=== PATIENT | female | born 1980 | race Caucasian/White ===

== ENCOUNTER 2017-05-19 19:29 | Emergency (ER) | payer MEDICAID ==
[2017-05-19 19:30] VITALS: BMI 20.9
[2017-05-19 19:42] VITALS: PULSE 67
[2017-05-19] MEDS ORDERED: Aspirin 325 mg EC Tablets PO STA (19:51)
--- NOTE | 2017-05-19 19:51 | C.PDOC ---
History Of Present Illness 36 y/o female presents to ED with complaints of intermittent reproducible chest pain for 2 days. 12/11 Patient denies fever, chills, sob, cough, n/v/d or any other complaints at this time Time Seen by Provider: 05/19/17 19:50 Chief Complaint (Nursing): Chest Pain History Per: Patient History/Exam Limitations: no limitations Onset/Duration Of Symptoms: Days Current Symptoms Are (Timing): Still Present Severity: Mild Pain Scale Rating Of: 2 Quality: "Pain" Associated Symptoms: denies: Nausea Exacerbating Factors: None Past Medical History Reviewed: Historical Data, Nursing Documentation, Vital Signs Vital Signs: Last Vital Signs Temp 97.3 F L 05/19/17 19:37 Pulse 67 05/19/17 19:37 Resp 16 05/19/17 19:37 BP 108/50 L 05/19/17 19:37 Pulse Ox 96 05/19/17 20:33 - Medical History PMH: Anemia, Anxiety, Asthma, Back Problems ("3 HERNIATED DISCS"), Depression, Diabetes, Hyperthyroidism, Hypothyroidism, Chronic Kidney Disease - [facility] Procedures ANESTH INJECT-SPIN CANAL (01/09/15) INJECT STEROID (01/09/15) LUMBOSAC SPINE X-RAY NEC (01/09/15) SPINAL CANAL INJECT NEC (01/09/15) TETANUS TOXOID ADMINIST (05/21/13) Family History: States: Unknown Family Hx - Social History Hx Tobacco Use: No Hx Alcohol Use: No Hx Substance Use: No - Immunization History Hx Tetanus Toxoid Vaccination: Yes (05/21/13) Hx Influenza Vaccination: No Hx Pneumococcal Vaccination: No Review Of Systems Constitutional: Negative for: Fever, Chills Cardiovascular: Positive for: Chest Pain. Negative for: Palpitations Respiratory: Negative for: Cough, Shortness of Breath Gastrointestinal: Negative for: Nausea, Vomiting Skin: Negative for: Rash Physical Exam - Physical Exam Appears: Non-toxic, No Acute Distress Skin: Warm, Dry, No Rash Head: Normacephalic Eye(s): bilateral: Normal Inspection Oral Mucosa: Moist Chest: Other (Reproducible pain on palpation) Cardiovascular: Rhythm Regular Respiratory: No Rales, No Rhonchi, No Wheezing Gastrointestinal/Abdominal: Soft, No Tenderness, No Guarding, No Rebound Extremity: Capillary Refill (<2 seconds), No Deformity Neurological/Psych: Oriented x3 ED Course And Treatment - Laboratory Results Result Diagrams: 05/19/17 19:58 05/19/17 19:58 ECG: Interpreted By Me, Viewed By Me ECG Rhythm: Sinus Rhythm (59), Nonspecific Changes O2 Sat by Pulse Oximetry: 96 (RA) Pulse Ox Interpretation: Normal Medical Decision Making Medical Decision Making: I considered the following diagnoses: acute coronary syndrome, pulmonary embolism, lower respiratory infection, aortic dissection/aneurysm, pneumothorax , pericarditis, esophagitis/GERD, zoster and esophageal rupture but found them to be unlikely based on the history, physical exam, and diagnostics. My conclusions regarding the unlikely diagnoses were based on: the absence of significant EKG abnormalities, the lack of suggestive x-ray findings, the absence of significant abnormalities on cardiac monitoring, the absence of asymmetric pulses. Pt is chest pain free and wants to go home Upon provider reevaluation patient is feeling better, is medically stable, and requires no further treatment in the ED at this time. Patient will be discharged home with Rx for naprosyn . Counseling was provided and all questions were answered regarding diagnosis and need for follow up with the referred clinic. There is agreement to discharge plan. Return if symptoms persist or worsen. Disposition Counseled Patient/Family Regarding: Studies Performed, Diagnosis, Need For Followup, Rx Given - Disposition Referrals: [facility] [Outside] [facility] [Outside] Disposition: HOME/ ROUTINE Disposition Time: 19:51 Condition: FAIR Additional Instructions: Please return if symptoms recur Prescriptions: Naproxen [Naprosyn] 1 tab PO BID PRN #25 tab PRN Reason: Pain Instructions: Costochondritis (ED) Forms: [facility] (Irish) - Clinical Impression Clinical Impression: Costochondral chest pain, Atypical chest pain - Scribe Statement The provider has reviewed the documentation as recorded by the Aneta Cooley All medical record entries made by the Aneta were at my direction and personally dictated by me. I have reviewed the chart and agree that the record accurately reflects my personal performance of the history, physical exam, medical decision making, and the department course for this patient. I have also personally directed, reviewed, and agree with the discharge instructions and disposition.
[2017-05-19 20:03] LABS: BASO # 0.1 K/uL (0.0-0.2); BASO % 1.3 % (0.0-2.0); EOS # 0.6 K/uL (0.0-0.7); EOS % 9.2 % (0.0-4.0); HEMATOCRIT 37.4 % (34.0-47.0); LYMPH # 3.1 K/uL (1.0-4.3); LYMPH % 50.5 % (20.0-40.0); MEAN CORPUSCULAR HEMOGLOBIN 28.8 pg (27.0-31.0); MEAN CORPUSCULAR HGB CONC 33.9 g/dL (33.0-37.0); MONO # 0.6 K/uL (0.0-0.8); MONO % 10.5 % (0.0-10.0); NRBC % 0.1 % (0.0-2.0); RED CELL DISTRIBUTION WIDTH 13.2 % (11.5-14.5); WHITE BLOOD COUNT 6.1 K/uL (4.8-10.8)
[2017-05-19 20:07] LABS: MEAN CELL VOLUME 85.2 fL (81.0-99.0)
[2017-05-19 20:13] LABS: CHLORIDE 104 mmol/L (98-107); POTASSIUM 3.7 mmol/L (3.6-5.2); SODIUM 140 mmol/L (132-148)
[2017-05-19 20:15] LABS: BILIRUBIN,TOTAL 0.4 mg/dL (0.2-1.3); CARBON DIOXIDE 24 mmol/L (22-30); GFR AFRICAN-AMERICAN > 60
[2017-05-19 20:16] LABS: ALB/GLOB RATIO 1.1 (1.0-2.1); ALKALINE PHOSPHATASE 61 U/L (38-126); ALT/SGPT 36 U/L (9-52); AST/SGOT 42 U/L (14-36); BLOOD UREA NITROGEN 11 mg/dL (7-17); CALCIUM 9.4 mg/dl (8.6-10.4); GLUCOSE,RANDOM 100 mg/dL (65-105); TOTAL PROTEIN 6.6 g/dL (6.3-8.3)
[2017-05-19 20:53] LABS: RBC URINE 1 /hpf (0-3); URINE BILIRUBIN NEGATIVE (NEGATIVE); URINE BLOOD NEGATIVE (NEGATIVE); URINE COLOR Yellow (YELLOW); URINE GLUCOSE (UA) NORMAL (Normal); URINE KETONE NEGATIVE (NEGATIVE); URINE LEUKOCYTE ESTERASE NEG Leu/uL (Negative); URINE PROTEIN NEGATIVE (NEGATIVE); URINE UROBILINOGEN NORMAL mg/dL (0.2-1.0); WBC URINE 4 /hpf (0-5)
[2017-05-19 22:40] VITALS: BP 103/70; RESP 18; TEMP 97.8; O2SAT 99
--- NOTE | 2017-05-22 18:05 | CARD ---
APPROVED REPORT EKG Measurement Heart [id number] <Conclusion> Sinus bradycardia Abnormal QRS-T angle, consider primary T wave abnormality Abnormal ECG
== END 2017-05-19 22:48 | disposition home or self-care (01) ==
LOC: C.ER 19:29
DX: R07.89 Other chest pain (principal)
CPT/HCPCS: 80053; 80324; 80345; 80346; 80349; 80353; 80358; 80361; 81001; 83992; 84484; 84703; 85025; 85610; 85730; 96374; 99284; J1885

== ENCOUNTER 2017-05-24 12:56 | Emergency (ER) | payer MEDICAID ==
[2017-05-24 13:15] VITALS: BMI 23.9
[2017-05-24] MEDS ORDERED: SODIUM CHLORIDE 0.9% IV STA (13:25)
[2017-05-24] MEDS ORDERED: LIDOCAINE IV STA (13:25)
[2017-05-24] MEDS ORDERED: Sodium Chloride 0.9% 1,000 ML IV STA (13:25)
--- NOTE | 2017-05-24 13:26 | C.PDOC ---
History Of Present Illness 36 y/o female presents to ED with new onset constant left pelvic pain radiating to front of left thigh for 3 days. Patient reports pain is worse with movement and states last taken Motrin at 0900. Patient denies Hx of kidney stone , chronic back pain, n/v/d, back pain, urinary symptoms or any other complaints at this time. NEW ONSET L PELVIC PAIN X 3 DAYS. CONSTANT RADIATION FRONT OF L THIGH. WORSE W MOVEMENT. NO TRAUMA. DENIES PRIOR HO KIDNEY STONES, CHRONIC BACK PAIN. NO OTHER ASSOC SX. LAST MOTRIN @ 0900 EXAM MOD DIST NONTOXIC ABD NEG NO CVAT BACK LIMITED ROM NEURO INTACT Time Seen by Provider: 05/24/17 13:16 Chief Complaint (Nursing): Lower Extremity Problem/Injury History Per: Patient History/Exam Limitations: no limitations Onset/Duration Of Symptoms: Days, Waxing/Waning Past Medical History Reviewed: Historical Data, Nursing Documentation, Vital Signs Vital Signs: Last Vital Signs Temp 97.9 F 05/24/17 13:01 Pulse 70 05/24/17 13:01 Resp 20 05/24/17 13:01 BP 107/67 05/24/17 13:01 Pulse Ox 99 05/24/17 14:05 - Medical History PMH: Anemia, Anxiety, Asthma, Back Problems ("3 HERNIATED DISCS"), Depression, Diabetes, Hyperthyroidism, Hypothyroidism, Chronic Kidney Disease - [facility] Procedures ANESTH INJECT-SPIN CANAL (01/09/15) INJECT STEROID (01/09/15) LUMBOSAC SPINE X-RAY NEC (01/09/15) SPINAL CANAL INJECT NEC (01/09/15) TETANUS TOXOID ADMINIST (05/21/13) Family History: States: No Known Family Hx - Social History Hx Tobacco Use: No Hx Alcohol Use: No Hx Substance Use: No - Immunization History Hx Tetanus Toxoid Vaccination: Yes (05/21/13) Hx Influenza Vaccination: No Hx Pneumococcal Vaccination: No Review Of Systems Except As Marked, All Systems Reviewed And Found Negative. Constitutional: Negative for: Fever, Chills Gastrointestinal: Negative for: Nausea, Vomiting, Diarrhea Genitourinary: Positive for: Pelvic Pain. Negative for: Dysuria, Frequency, Incontinence, Vaginal Bleeding Musculoskeletal: Negative for: Back Pain Skin: Negative for: Rash Physical Exam - Physical Exam Appears: Non-toxic, Other (Moderate distress) Skin: Normal Color, Warm, Dry, No Rash Eye(s): bilateral: Normal Inspection Oral Mucosa: Moist Neck: Supple Gastrointestinal/Abdominal: Soft, No Tenderness, No Guarding, No Rebound Back: No CVA Tenderness, Decreased ROM (secondary to pain) Neurological/Psych: Oriented x3, Normal Speech, Normal Motor, Normal Sensation ED Course And Treatment - Laboratory Results Urine POC: Negative O2 Sat by Pulse Oximetry: 99 (RA) Pulse Ox Interpretation: Normal Reevaluation Time: 17:01 Reassessment Condition: Improved Disposition Counseled Patient/Family Regarding: Studies Performed, Diagnosis, Need For Followup, Rx Given - Disposition Referrals: Clinic,Med Surg [Primary Care Provider] - Disposition: HOME/ ROUTINE Disposition Time: 17:01 Condition: IMPROVED Prescriptions: Ibuprofen [Motrin] 600 mg PO Q6 #30 tab Lidocaine 5% [Lidoderm] 1 ea TD PRN PRN #10 patch PRN Reason: Pain, Moderate (4-7) Tramadol HCl [Ultram] 50 mg PO QID #20 tab Instructions: Sciatica (ED) Forms: [employer] (Armenian), Work Excuse - Clinical Impression Clinical Impression: Groin pain, Sciatic leg pain - 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 - Scribe Statement The provider has reviewed the documentation as recorded by the Moibjimbo Cooley All medical record entries made by the Aneta were at my direction and personally dictated by me. I have reviewed the chart and agree that the record accurately reflects my personal performance of the history, physical exam, medical decision making, and the department course for this patient. I have also personally directed, reviewed, and agree with the discharge instructions and disposition.
[2017-05-24 14:01] LABS: RBC URINE 1 /hpf (0-3); URINE BACTERIA RARE (<OCC); URINE BILIRUBIN NEGATIVE (NEGATIVE); URINE BLOOD NEGATIVE (NEGATIVE); URINE COLOR Yellow (YELLOW); URINE GLUCOSE (UA) NORMAL (Normal); URINE KETONE NEGATIVE (NEGATIVE); URINE LEUKOCYTE ESTERASE 1+ Leu/uL (Negative); URINE PROTEIN NEGATIVE (NEGATIVE); URINE UROBILINOGEN NORMAL mg/dL (0.2-1.0); WBC URINE 25 /hpf (0-5)
--- NOTE | 2017-05-24 16:44 | CT ---
PROCEDURE: CT scan abdomen and pelvis dated 05/24/2017 HISTORY: Left groin pain; rule out renal stone COMPARISON: No prior study available comparison TECHNIQUE: Contiguous axial images of the abdomen pelvis performed without oral or intravenous contrast material. Additional 2 dimensional sagittal and coronal reformats generated. Radiation dose: Total exam DLP = 271.21 mGy-cm. This CT exam was performed using one or more of the following dose reduction techniques: Automated exposure control, adjustment of the mA and/or kV according to patient size, and/or use of iterative reconstruction technique. FINDINGS: LOWER THORAX: Minimal passive atelectasis both posterior lower lung cortes. Lung bases otherwise clear. No infiltrate effusion or basilar pneumothorax. There is small hiatal hernia with slight wall thickening of the distal esophagus that likely due to protrusion of gastric mucosa. Esophagitis not excluded. LIVER: The liver is borderline/mildly enlarged measuring approximately 18.3 cm dimension. No obvious hepatic mass collection or calcification. GALLBLADDER AND BILE DUCTS: Gallbladder is physiologically distended. . There is a tiny intraluminal gallbladder calculus in the region the gallbladder neck appear clinical correlation recommended. Consider followup gallbladder ultrasound further evaluation. PANCREAS: Visualized unenhanced pancreas appears grossly unremarkable SPLEEN: The spleen exhibits normal attenuation pattern without mass collection or calcification. ADRENALS: There are no adrenal lesions. KIDNEYS AND URETERS: Kidneys demonstrate symmetric size. No definitive evidence of nephrolithiasis. . There is very tiny approximately 1.7 mm calcific density in the region of the left UVJ. While this could be extrinsic to the urinary bladder clinical correlation with urinalysis is suggested to assess for any hematuria. BLADDER: Urinary bladder is incompletely distended which may account for slight thick-walled appearance. Rule out cystitis. REPRODUCTIVE: Apparent hysterectomy with scarring seen along lower mid anterior abdominal wall. APPENDIX: Normal-appearing retrocecal appendix best seen on coronal axial image number [id number]. No periappendiceal inflammatory changes. BOWEL: Evaluation of the bowel is limited due to the lack of oral contrast. Stomach is incompletely distended which may account for slight thick-walled appearance. Gastritis not excluded. Visualized loops of small bowel exhibit normal contour and caliber. No evidence of acute mechanical small bowel obstruction. . Questionable few scattered colonic diverticula along the sigmoid colon. No evidence of acute diverticulitis Distal descending and sigmoid colon also what appears represent some mild submucosal fat deposition . Rule out the sequela of chronic inflammation. PERITONEUM: Unremarkable. No fluid collection. No free air. Small fat containing umbilical hernia. LYMPH NODES: Unremarkable. No significant bulky/enlarged lymph nodes. VASCULATURE: No evidence of abdominal aortic aneurysm BONES: Minor degenerative changes seen at the L4-L5 and L5-S1 levels. Minor degenerative spondylosis of the lower thoracic spine as well. No acute compression fractures nor retropulsed fragments. No evidence of suspicious lytic or blastic lesions. OTHER FINDINGS: None. IMPRESSION: There is a very tiny calcification measuring 1.7 mm in the region of the left UVJ however no evidence of left-sided hydronephrosis. This may be extrinsic to the urinary bladder could represent calcified pelvic phleboliths however the correlation with urinalysis recommended. Mild wall thickening of the urinary bladder likely due to incomplete distention however cystitis not excluded. Multiple additional small calcifications seen scattered throughout the pelvis consistent calcified pelvic phleboliths. Apparent status post hysterectomy. Small hiatal hernia. There appears to be mild submucosal fat deposition within the distal descending and sigmoid colon; rule out sequela of chronic inflammation. Questionable few colonic diverticula along the sigmoid colon also felt be present however no radiographic evidence of diverticulitis. Small fat containing umbilical hernia. The findings discussed with Dr. Root at approximately 4:42 p.m. with written down and read back verification.
[2017-05-24 17:15] VITALS: BP 126/76; PULSE 72; RESP 16; TEMP 97.5; O2SAT 100
== END 2017-05-24 17:15 | disposition home or self-care (01) ==
LOC: C.ER 12:56 → SUPCPDRO 12:56 → C.ER 17:15
DX: M54.32 Sciatica, left side (principal)
CPT/HCPCS: 74176; 81001; 96360; 99285; J2001; J7040

== ENCOUNTER 2017-07-06 22:01 | Emergency (ER) | payer MEDICAID ==
[2017-07-06 22:01] VITALS: BMI 23.9
[2017-07-06 22:29] VITALS: BP 102/71; PULSE 78; TEMP 97.9; O2SAT 100
--- NOTE | 2017-07-07 00:57 | C.PDOC ---
History Of Present Illness 36 year old female with a history of known herniated discs presents to the ED with complaints of right sided Sciatica pain that radiates to right back and buttock. Patient also complaints of two "insect bites" to right thigh. She denies weakness numbness, dysuria, incontinence, fever, or other complaints. Time Seen by Provider: 07/06/17 23:01 Chief Complaint (Nursing): Abnormal Skin Integrity History Per: Patient History/Exam Limitations: no limitations Onset/Duration Of Symptoms: Hrs (insect bites), Persistent (right sided sciatica pain ) Current Symptoms Are (Timing): Still Present Quality Of Symptoms: Painful. denies: Itching, Swollen, Draining Recent travel outside of the [place]: No Past Medical History Reviewed: Historical Data, Nursing Documentation, Vital Signs Vital Signs: Last Vital Signs Temp 97.9 F 07/06/17 22:26 Pulse 78 07/06/17 22:26 Resp 20 07/07/17 01:03 BP 102/71 07/06/17 22:26 Pulse Ox 100 07/07/17 01:59 - Medical History PMH: Anemia, Anxiety, Asthma, Back Problems ("3 HERNIATED DISCS"), Depression, Diabetes, Hyperthyroidism, Hypothyroidism, Chronic Kidney Disease - [facility] Procedures ANESTH INJECT-SPIN CANAL (01/09/15) INJECT STEROID (01/09/15) LUMBOSAC SPINE X-RAY NEC (01/09/15) SPINAL CANAL INJECT NEC (01/09/15) TETANUS TOXOID ADMINIST (05/21/13) Family History: States: Unknown Family Hx - Social History Hx Tobacco Use: No Hx Alcohol Use: No Hx Substance Use: No - Immunization History Hx Tetanus Toxoid Vaccination: Yes (05/21/13) Hx Influenza Vaccination: No Hx Pneumococcal Vaccination: No Review Of Systems Constitutional: Negative for: Fever, Chills Gastrointestinal: Negative for: Nausea, Vomiting Genitourinary: Negative for: Dysuria, Incontinence Musculoskeletal: Positive for: Back Pain (right sided sciatica pain radiating to right back and right buttock ) Skin: Positive for: Other (insect bites ) Neurological: Negative for: Weakness, Numbness Physical Exam - Physical Exam Appears: Non-toxic, No Acute Distress Skin: Warm, Dry, Other (two welts consistent with an insect bite to right thigh , no open sores. ) Head: Atraumatic, Normacephalic Eye(s): bilateral: Normal Inspection, PERRL, EOMI Oral Mucosa: Moist Neck: Normal ROM, No Midline Cervical Tenderness, No Paracervical Tenderness, Supple Chest: Symmetrical, No Deformity Cardiovascular: Rhythm Regular, No Murmur Respiratory: Normal Breath Sounds, No Rales, No Rhonchi, No Wheezing Back: Paraspinal Tenderness (right paralumbar tenderness ), Straight Leg Raising Extremity: Normal ROM, No Tenderness, No Pedal Edema, No Calf Tenderness, No Deformity, No Swelling ED Course And Treatment O2 Sat by Pulse Oximetry: 100 (RA) - Other Rad LS X-Ray X-Ray: Interpreted by Me, Viewed By Me Interpretation: Negative. Progress Note: Patient was given Benadryl, Toradol, and Valium. LS X-Ray was ordered. On re-evaluation patient feels better and is able to be d/c home with PMD follow up. Disposition - Disposition Disposition: HOME/ ROUTINE Disposition Time: 00:55 Condition: STABLE Additional Instructions: Follow up with PMD within 1-2 days. Return to ED if feel worse. Do not drive or operate heavy machinery, your medications may cause dizziness. 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 - Scribe Statement The provider has reviewed the documentation as recorded by the Scribe Merced Buckley All medical record entries made by the Scribe were at my direction and personally dictated by me. I have reviewed the chart and agree that the record accurately reflects my personal performance of the history, physical exam, medical decision making, and the department course for this patient. I have also personally directed, reviewed, and agree with the discharge instructions and disposition.
[2017-07-07 01:03] VITALS: RESP 20
--- NOTE | 2017-07-07 08:16 | RAD ---
PROCEDURE: Radiographs of the Lumbar Spine. HISTORY: left sciatica COMPARISON: Abdomen pelvis CT examination 05/24/2017. FINDINGS: BONES: Normal alignment. No listhesis. No fracture. DISC SPACES: Limited disc height loss at L4-5 and L5-S1 is appreciated which appear stable and again reflects limited degenerative disease. OTHER FINDINGS: None. IMPRESSION: Mild, stable inferior lumbar degenerative disc disease. No interval fracture or spondylolisthesis.
== END 2017-07-07 01:03 | disposition home or self-care (01) ==
LOC: C.ER 22:01
DX: M54.31 Sciatica, right side (principal); S70.361A Insect bite (nonvenomous), right thigh, initial encounter; W57.XXXA Bitten or stung by nonvenomous insect and other nonvenomous arthropods, initial encounter
CPT/HCPCS: 72100; 96372; 99283; J1885

== ENCOUNTER 2017-07-08 20:24 | Emergency (ER) | payer MEDICAID ==
[2017-07-08 20:24] VITALS: BMI 23.9
[2017-07-08 20:34] VITALS: BP 108/80; PULSE 86; RESP 18; TEMP 97.9; O2SAT 98
--- NOTE | 2017-07-08 21:43 | C.PDOC ---
History Of Present Illness 36 year old female with a Hx of sciatica presents to the ER with a complaint of left lower back pain radiating to the left buttock and left inguinal area that began today. Denies weakness, numbness, abdominal pain, urinary symptoms, or incontinence. Time Seen by Provider: 07/08/17 20:35 Chief Complaint (Nursing): Back Pain History Per: Patient History/Exam Limitations: no limitations Onset/Duration Of Symptoms: Hrs Current Symptoms Are (Timing): Still Present Quality Of Discomfort: Unable To Describe Previous Symptoms: Other (Sciatica) Associated Symptoms: None Exacerbating Factor(s): Nothing Recent travel outside of the [place]: No Past Medical History Reviewed: Historical Data, Nursing Documentation, Vital Signs Vital Signs: Last Vital Signs Temp 97.9 F 07/08/17 20:31 Pulse 86 07/08/17 20:31 Resp 18 07/08/17 20:31 BP 108/80 07/08/17 20:31 Pulse Ox 98 07/08/17 21:44 - Medical History PMH: Anemia, Anxiety, Asthma, Back Problems ("3 HERNIATED DISCS"), Depression, Diabetes, Hyperthyroidism, Hypothyroidism, Chronic Kidney Disease Surgical History: No Surg Hx - [facility] Procedures ANESTH INJECT-SPIN CANAL (01/09/15) INJECT STEROID (01/09/15) LUMBOSAC SPINE X-RAY NEC (01/09/15) SPINAL CANAL INJECT NEC (01/09/15) TETANUS TOXOID ADMINIST (05/21/13) Family History: States: Unknown Family Hx - Social History Hx Tobacco Use: No Hx Alcohol Use: No Hx Substance Use: No - Immunization History Hx Tetanus Toxoid Vaccination: Yes (05/21/13) Hx Influenza Vaccination: No Hx Pneumococcal Vaccination: No Review Of Systems Gastrointestinal: Negative for: Abdominal Pain Genitourinary: Negative for: Dysuria, Incontinence, Hematuria Musculoskeletal: Positive for: Back Pain, Leg Pain Neurological: Negative for: Weakness, Numbness Physical Exam - Physical Exam Appears: Non-toxic, No Acute Distress Skin: Normal Color, Warm, Dry Head: Atraumatic, Normacephalic Oral Mucosa: Moist Gastrointestinal/Abdominal: Soft, No Tenderness Back: Normal Inspection, No Vertebral Tenderness, No Paraspinal Tenderness Extremity: Normal ROM (x4), No Tenderness Neurological/Psych: Oriented x3, Normal Speech, Normal Cognition, Normal Motor, Normal Sensation Gait: Steady ED Course And Treatment O2 Sat by Pulse Oximetry: 98 (Room air) Pulse Ox Interpretation: Normal Progress Note: Toradol administered. Patient is resting comfortably, is no longer having back pain, no fever, no bony tenderness, no numbness, no weakness , or abdominal pain. Patient is ambulatory in the emergency department with no signs of discomfort. Patient was advised to follow up with PMD in 1-2 days. Disposition Counseled Patient/Family Regarding: Diagnosis, Need For Followup, Rx Given - Disposition Referrals: Non [facility] Provider, [Primary Care Provider] - Disposition: HOME/ ROUTINE Disposition Time: 21:41 Condition: STABLE Additional Instructions: Please follow up with PMD or in clinic Take meds as directed Return to ER if worse Prescriptions: Cyclobenzaprine [Cyclobenzaprine HCl] 10 mg PO HS #10 tab Naproxen [Naprosyn] 1 tab PO BID PRN #20 tab PRN Reason: Pain Instructions: Sciatica (ED) Forms: [employer] (Faroese) - Clinical Impression Clinical Impression: Sciatica - Scribe Statement The provider has reviewed the documentation as recorded by the Scribjimbo Shine All medical record entries made by the Scribe were at my direction and personally dictated by me. I have reviewed the chart and agree that the record accurately reflects my personal performance of the history, physical exam, medical decision making, and the department course for this patient. I have also personally directed, reviewed, and agree with the discharge instructions and disposition.
== END 2017-07-08 21:51 | disposition home or self-care (01) ==
LOC: C.ER 20:24 → SUPCPDRO 20:24 → C.ER 21:51
DX: M54.32 Sciatica, left side (principal)
CPT/HCPCS: 96372; 99283; J1885

== ENCOUNTER 2017-08-03 15:22 | Emergency (ER) | payer MEDICAID ==
[2017-08-03 15:29] VITALS: BMI 23.3
[2017-08-03 15:30] VITALS: BP 102/75; PULSE 75; RESP 18; TEMP 97.4; O2SAT 98
--- NOTE | 2017-08-03 15:49 | C.PDOC ---
Time Seen by Provider: 08/03/17 15:44 Chief Complaint (Nursing): Dental Pain Past Medical History Vital Signs: Last Vital Signs Temp 97.4 F L 08/03/17 15:29 Pulse 75 08/03/17 15:29 Resp 18 08/03/17 15:29 BP 102/75 08/03/17 15:29 Pulse Ox 98 08/03/17 15:49 - Medical History PMH: Anemia, Anxiety, Asthma, Back Problems ("3 HERNIATED DISCS"), Depression, Diabetes, Hyperthyroidism, Hypothyroidism, Chronic Kidney Disease - [facility] Procedures ANESTH INJECT-SPIN CANAL (01/09/15) INJECT STEROID (01/09/15) LUMBOSAC SPINE X-RAY NEC (01/09/15) SPINAL CANAL INJECT NEC (01/09/15) TETANUS TOXOID ADMINIST (05/21/13) Family History: States: Unknown Family Hx - Social History Hx Tobacco Use: No Hx Alcohol Use: No Hx Substance Use: No - Immunization History Hx Tetanus Toxoid Vaccination: Yes (05/21/13) Hx Influenza Vaccination: No Hx Pneumococcal Vaccination: No ED Course And Treatment O2 Sat by Pulse Oximetry: 98 Medical Decision Making Medical Decision Making: typical R lower facial post-op swelling after removed wisdom tooth yesterday ice pack for face continue same amox and ibuprofen as prescribed by dentist yesterday Disposition Doctor Will See Patient In The: Office Counseled Patient/Family Regarding: Studies Performed, Diagnosis - Disposition Disposition: HOME/ ROUTINE Disposition Time: 16:11 Condition: GOOD Forms: [employer] Connect (Citizen Of [place]) - Clinical Impression Clinical Impression: Facial swelling
== END 2017-08-03 16:21 | disposition home or self-care (01) ==
LOC: C.ER 15:22
DX: R22.0 Localized swelling, mass and lump, head (principal); E11.9 Type 2 diabetes mellitus without complications; N18.9 Chronic kidney disease, unspecified; E05.90 Thyrotoxicosis, unspecified without thyrotoxic crisis or storm

== ENCOUNTER 2017-09-30 12:27 | Emergency (ER) | payer MEDICAID ==
[2017-09-30 12:27] VITALS: BMI 23.3
--- NOTE | 2017-09-30 14:44 | C.PDOC ---
History Of Present Illness 36 year old female presents to the ED for evaluation of body aches, fever that stated this morning. Patient states she has not taken any medication at home for her symptoms and did not get the flu shot this year. Patient reports her son was recently with the flu. Patient denies nausea, vomit, diarrhea, abdominal pain, nasal congestion, recent travel. Time Seen by Provider: 09/30/17 12:50 Chief Complaint (Nursing): Flu-like Symptoms History Per: Patient History/Exam Limitations: no limitations Onset/Duration Of Symptoms: Hrs Current Symptoms Are (Timing): Still Present Location Of Pain: Diffuse Myalgias Sick Contacts (Context): Family Member(s) (son) Associated Symptoms: Fever, Myalgias Ear Symptoms: Bilateral: None Severity: None Recent travel outside of the [place]: No Additional History Per: Patient Past Medical History Reviewed: Historical Data, Nursing Documentation, Vital Signs Vital Signs: Last Vital Signs Temp 101.9 F H 09/30/17 14:45 Pulse 78 09/30/17 14:45 Resp 20 09/30/17 14:45 BP 121/78 09/30/17 14:45 Pulse Ox 99 09/30/17 14:47 - Medical History PMH: Anemia, Anxiety, Asthma, Back Problems ("3 HERNIATED DISCS"), Depression, Diabetes, Hyperthyroidism, Hypothyroidism, Chronic Kidney Disease Surgical History: No Surg Hx - [facility] Procedures ANESTH INJECT-SPIN CANAL (01/09/15) INJECT STEROID (01/09/15) LUMBOSAC SPINE X-RAY NEC (01/09/15) SPINAL CANAL INJECT NEC (01/09/15) TETANUS TOXOID ADMINIST (05/21/13) Family History: States: Unknown Family Hx - Social History Hx Tobacco Use: No Hx Alcohol Use: No Hx Substance Use: No - Immunization History Hx Tetanus Toxoid Vaccination: Yes (05/21/13) Hx Influenza Vaccination: No Hx Pneumococcal Vaccination: No Review Of Systems Constitutional: Positive for: Fever, Other (body aches). Negative for: Chills Cardiovascular: Negative for: Chest Pain, Palpitations Respiratory: Negative for: Cough, Shortness of Breath Gastrointestinal: Negative for: Nausea, Vomiting, Abdominal Pain Skin: Negative for: Rash Neurological: Negative for: Weakness, Numbness Physical Exam - Physical Exam Appears: Non-toxic, No Acute Distress, Other (warm to touch) Skin: Normal Color, Warm, Dry Head: Atraumatic, Normacephalic Eye(s): bilateral: Normal Inspection Ear(s): Bilateral: Normal Nose: No Discharge, No Deformity Oral Mucosa: Moist Throat: Normal, No Erythema, No Exudate Neck: Normal ROM, Supple Chest: Symmetrical Cardiovascular: Rhythm Regular, No Murmur Respiratory: Normal Breath Sounds, No Rales, No Rhonchi, No Wheezing Gastrointestinal/Abdominal: Soft, No Tenderness Extremity: Normal ROM, No Calf Tenderness, No Deformity, No Swelling Neurological/Psych: Oriented x3, Normal Speech, Normal Cognition Gait: Steady ED Course And Treatment O2 Sat by Pulse Oximetry: 99 (On RA) Pulse Ox Interpretation: Normal Medical Decision Making Medical Decision Making: Impression : generalized body aches, fever Plan: * Influenza A B test Disposition - Disposition Referrals: Estrella Bañuelos, [Non-Staff] - Disposition: HOME/ ROUTINE Disposition Time: 14:00 Condition: GOOD Additional Instructions: Thank you for letting us take care of you today. The emergency medical care you received today was directed at your acute symptoms. If you were prescribed any medication, please fill it and take as directed. It may take several days for your symptoms to resolve. Return to the Emergency Department if your symptoms worsen, do not improve, or if you have any other problems. Please contact your doctor or call one of the physicians/clinics you have been referred to that are listed on the Patient Visit Information form that is included in your discharge packet. Bring any paperwork you were given at discharge with you along with any medications you are taking to your follow up visit. Our treatment cannot replace ongoing medical care by a primary care provider (PCP) outside of the emergency department. Thank you for allowing the [facility] team to be part of your care today. Stay hydrated throughout the day. Follow up with your doctor in 2-3 days for outpatient management and further evaluation. Prescriptions: Ibuprofen [Motrin] 600 mg PO Q6 PRN #20 tab PRN Reason: Pain, Moderate (4-7) Oseltamivir Phosphate [Tamiflu] 75 mg PO BID #10 capsule Instructions: Viral Syndrome (ED) - Clinical Impression Clinical Impression: Influenza-like illness - Scribe Statement The provider has reviewed the documentation as recorded by the Scribe Bharath Dey All medical record entries made by the Scribe were at my direction and personally dictated by me. I have reviewed the chart and agree that the record accurately reflects my personal performance of the history, physical exam, medical decision making, and the department course for this patient. I have also personally directed, reviewed, and agree with the discharge instructions and disposition.
[2017-09-30 14:46] VITALS: BP 121/78; PULSE 78; RESP 20; TEMP 101.9
[2017-09-30 14:47] VITALS: O2SAT 99
== END 2017-09-30 14:46 | disposition home or self-care (01) ==
LOC: C.ER 12:27
DX: J11.1 Influenza due to unidentified influenza virus with other respiratory manifestations (principal); N18.9 Chronic kidney disease, unspecified; E11.9 Type 2 diabetes mellitus without complications

== ENCOUNTER 2017-11-18 22:27 | Emergency (ER) | payer MEDICAID ==
[2017-11-18 22:27] VITALS: BMI 23.3
[2017-11-18 23:23] VITALS: BP 111/70; PULSE 62; RESP 20; TEMP 98.1; O2SAT 100
--- NOTE | 2017-11-18 23:48 | C.PDOC ---
History Of Present Illness 36 yo female with PMH of 3 herniated discs lower back pain since yesterday. She did not try any medication. She use to see pain management but has not seen them in 1-2 years. Pain worse with movement. No new symptoms. Denies trauma, symptoms, urinary/bowel incontinence, abdominal pain, weakness, or change in sensation. Time Seen by Provider: 11/18/17 23:26 Chief Complaint (Nursing): Back Pain History Per: Patient History/Exam Limitations: no limitations Onset/Duration Of Symptoms: Days (yesterday) Current Symptoms Are (Timing): Still Present Associated Symptoms: denies: Incontinence, New Weakness, New Numbness Exacerbating Factor(s): Movement Past Medical History Vital Signs: Last Vital Signs Temp 98.1 F 11/18/17 23:20 Pulse 62 11/18/17 23:20 Resp 20 11/19/17 01:07 BP 111/70 11/18/17 23:20 Pulse Ox 100 11/19/17 00:59 - Medical History PMH: Anemia, Anxiety, Asthma, Back Problems ("3 HERNIATED DISCS"), Depression, Diabetes, Hyperthyroidism, Hypothyroidism, Chronic Kidney Disease - [facility] Procedures ANESTH INJECT-SPIN CANAL (01/09/15) INJECT STEROID (01/09/15) LUMBOSAC SPINE X-RAY NEC (01/09/15) SPINAL CANAL INJECT NEC (01/09/15) TETANUS TOXOID ADMINIST (05/21/13) Family History: States: Unknown Family Hx - Social History Hx Tobacco Use: No Hx Alcohol Use: No Hx Substance Use: No - Immunization History Hx Tetanus Toxoid Vaccination: Yes (05/21/13) Hx Influenza Vaccination: No Hx Pneumococcal Vaccination: No Review Of Systems Except As Marked, All Systems Reviewed And Found Negative. Musculoskeletal: Positive for: Back Pain Physical Exam - Physical Exam Appears: Well, Non-toxic, No Acute Distress Skin: Normal Color, Warm, Dry Head: Atraumatic, Normacephalic Eye(s): bilateral: Normal Inspection, PERRL, EOMI Nose: Normal Oral Mucosa: Moist Neck: Normal, Normal ROM, No Midline Cervical Tenderness, Supple Chest: Symmetrical Cardiovascular: Rhythm Regular Respiratory: Normal Breath Sounds Gastrointestinal/Abdominal: Normal Exam, Soft, No Tenderness Back: No CVA Tenderness, No Vertebral Tenderness, Paraspinal Tenderness (b/l paralumbar tenderness) Extremity: Normal ROM Neurological/Psych: Oriented x3, Normal Speech, Normal Motor, Normal Sensation Gait: Steady ED Course And Treatment O2 Sat by Pulse Oximetry: 100 Progress Note: Toradol and Flexeril ordered. On re-evaluation, pt is sleeping. Patient remains afebrile, with no bony tenderness, extremity numbness or weakness, or abdominal pain. Patient is ambulatory in the emergency department with no signs of discomfort. Patient was advised to follow up with physician/ clinic in 1-2 days. Disposition - Disposition Disposition: HOME/ ROUTINE Disposition Time: 00:58 Condition: STABLE Additional Instructions: Follow up with your primary medical doctor or clinic in 2-5 days for further evaluation. Take medications as prescribed. Return to the emergency department at any time if symptoms persist or worsen. Prescriptions: Cyclobenzaprine [Cyclobenzaprine HCl] 10 mg PO BID #14 tab Naproxen [Naprosyn] 1 tab PO BID PRN #20 tab PRN Reason: Pain Instructions: Low Back Pain (DC) Forms: [employer] (Czech) - Clinical Impression Clinical Impression: Lumbar back pain
[2017-11-19 00:39] LABS: HCG,QUALITATIVE URINE NEGATIVE (NEGATIVE)
[2017-11-19 00:44] LABS: SQUAMOUS EPITHIAL 6 /hpf (0-5); URINE BILIRUBIN NEGATIVE (NEGATIVE); URINE BLOOD NEGATIVE (NEGATIVE); URINE CLARITY Clear (Clear); URINE COLOR Yellow (YELLOW); URINE GLUCOSE (UA) NORMAL (Normal); URINE LEUKOCYTE ESTERASE TRACE Leu/uL (Negative); URINE NITRATE NEGATIVE (NEGATIVE); URINE PROTEIN NEGATIVE (NEGATIVE); URINE UROBILINOGEN NORMAL mg/dL (0.2-1.0)
== END 2017-11-19 01:06 | disposition home or self-care (01) ==
LOC: C.ER 22:27
DX: M54.5 Low back pain (principal)
CPT/HCPCS: 81001; 84703; 96372; 99283; J1885

== ENCOUNTER 2017-12-01 15:07 | Inpatient (IN) | payer MEDICAID ==
[2017-12-01 15:08] VITALS: BMI 23.3
--- NOTE | 2017-12-01 16:33 | C.PDOC ---
History Of Present Illness 36-year-old female, PMHx includes Hypothyroidism and Asthma, presents to the emergency department with complaints of left upper chest pain for the past three days. Patient was seen at a clinic, where an EKG was done and patient was instructed to follow up with cardiology. Patient notes the chest pain persisted , resulting in her coming to ED for evaluation prior to making appointment with a layout former. Patient took Motrin at home with minimal relief. Patient notes associated nausea and dizziness (lightheadedness). Patient denies any recent travel, leg swelling/pain, vomiting, fevers/chills, shortness of breath, chest pain. Of note patient states she has a FMHx of [place] in father (in his "30s") and "blood clot in neck" in mother. Time Seen by Provider: 12/01/17 15:50 Chief Complaint (Nursing): Chest Pain History Per: Patient History/Exam Limitations: no limitations Onset/Duration Of Symptoms: Days Current Symptoms Are (Timing): Still Present Past Medical History Reviewed: Historical Data, Nursing Documentation, Vital Signs Vital Signs: Last Vital Signs Temp 98.2 F 12/01/17 15:34 Pulse 94 H 12/01/17 15:34 Resp 18 12/01/17 15:34 BP 114/80 12/01/17 15:34 Pulse Ox 97 12/01/17 18:14 - Medical History PMH: Anemia, Anxiety, Asthma, Back Problems ("3 HERNIATED DISCS"), Depression, Diabetes, Hyperthyroidism, Hypothyroidism, Chronic Kidney Disease - [facility] Procedures ANESTH INJECT-SPIN CANAL (01/09/15) INJECT STEROID (01/09/15) LUMBOSAC SPINE X-RAY NEC (01/09/15) SPINAL CANAL INJECT NEC (01/09/15) TETANUS TOXOID ADMINIST (05/21/13) Family History: States: No Known Family Hx - Social History Hx Tobacco Use: No Hx Alcohol Use: No Hx Substance Use: No - Immunization History Hx Tetanus Toxoid Vaccination: Yes (05/21/13) Hx Influenza Vaccination: Yes Hx Pneumococcal Vaccination: No Review Of Systems Except As Marked, All Systems Reviewed And Found Negative. Constitutional: Negative for: Fever, Chills Cardiovascular: Positive for: Chest Pain Respiratory: Negative for: Shortness of Breath Gastrointestinal: Negative for: Nausea, Vomiting Musculoskeletal: Positive for: Arm Pain. Negative for: Back Pain Skin: Negative for: Rash Neurological: Negative for: Weakness, Numbness, Headache, Dizziness Physical Exam - Physical Exam Appears: Well, Non-toxic, No Acute Distress, Other (anxious appearing ) Skin: Normal Color, Warm, Dry, No Rash Eye(s): bilateral: Normal Inspection Oral Mucosa: Moist Neck: Normal, Normal ROM Cardiovascular: Rhythm Regular Respiratory: Normal Breath Sounds, No Accessory Muscle Use, No Rales, No Rhonchi , No Wheezing Extremity: Normal ROM, No Calf Tenderness, No Deformity, No Swelling Pulses: Left Dorsalis Pedis: Normal, Right Dorsalis Pedis: Normal Neurological/Psych: Oriented x3 ED Course And Treatment - Laboratory Results Result Diagrams: 12/01/17 16:33 12/01/17 16:33 ECG: Interpreted By Me, Viewed By Me (NSR 65 bpm, normal axis, no acute ST/T wave changes) ECG Interpretation: Normal O2 Sat by Pulse Oximetry: 97 (RA) Pulse Ox Interpretation: Normal - Radiology CXR: Interpreted by Me, Viewed By Me CXR Interpretation: Yes: No Acute Disease. No: Infiltrates Progress Note: Bloodwork, Chest X-Ray, EKG and UA/Upreg ordered and reviewed. Patient given IV morphine for pain. D-dimer elevated, CTQ chest ordered - however patient states she has shellfish allergy; changed to VQ scan. Disposition - Disposition Disposition Time: 19:05 Condition: STABLE Forms: [facility] (Cook Islander) - Clinical Impression Clinical Impression: Chest pain - Scribe Statement The provider has reviewed the documentation as recorded by the Scribe (Lamont Ruffin) All medical record entries made by the Scribe were at my direction and personally dictated by me. I have reviewed the chart and agree that the record accurately reflects my personal performance of the history, physical exam, medical decision making, and the department course for this patient. I have also personally directed, reviewed, and agree with the discharge instructions and disposition. Physician Patient Turnover Patient Signed Over To: Carl Deras Handoff Comments: pending VQ scan
[2017-12-01 16:40] LABS: BASO # 0.1 K/uL (0.0-0.2); BASO % 1.4 % (0.0-2.0); EOS # 0.6 K/uL (0.0-0.7); EOS % 7.5 % (0.0-4.0); HEMOGLOBIN 12.3 g/dL (11.0-16.0); LYMPH # 3.4 K/uL (1.0-4.3); LYMPH % 42.3 % (20.0-40.0); MEAN CELL VOLUME 87.5 fL (81.0-99.0); MEAN CORPUSCULAR HEMOGLOBIN 30.1 pg (27.0-31.0); MEAN CORPUSCULAR HGB CONC 34.4 g/dL (33.0-37.0); MEAN PLATELET VOLUME 9.2 fL (7.2-11.7); MONO # 0.8 K/uL (0.0-0.8); MONO % 9.6 % (0.0-10.0); NEUT # 3.1 K/uL (1.8-7.0); NEUT % 39.2 % (50.0-75.0); NRBC % 0.1 % (0.0-2.0); RBC 4.08 Mil/uL (3.80-5.20); RED CELL DISTRIBUTION WIDTH 13.7 % (11.5-14.5)
[2017-12-01 16:48] LABS: SQUAMOUS EPITHIAL 4 /hpf (0-5); URINE BILIRUBIN NEGATIVE (NEGATIVE); URINE BLOOD NEGATIVE (NEGATIVE); URINE CLARITY Clear (Clear); URINE COLOR Red (YELLOW); URINE GLUCOSE (UA) NORMAL (Normal); URINE LEUKOCYTE ESTERASE NEG Leu/uL (Negative); URINE NITRATE NEGATIVE (NEGATIVE); URINE PROTEIN NEGATIVE (NEGATIVE); URINE UROBILINOGEN NORMAL mg/dL (0.2-1.0)
[2017-12-01 16:49] LABS: HCG,QUALITATIVE URINE NEGATIVE (NEGATIVE)
[2017-12-01 16:55] LABS: ALB/GLOB RATIO 1.1 (1.0-2.1); ALBUMIN 3.8 g/dL (3.5-5.0); ALT/SGPT 22 U/L (9-52); AST/SGOT 37 U/L (14-36); BLOOD UREA NITROGEN 13 mg/dL (7-17); CALCIUM 9.4 mg/dl (8.6-10.4); GFR AFRICAN-AMERICAN > 60; GFR NON-AFRICAN AMERICAN > 60
--- NOTE | 2017-12-01 17:00 | RAD ---
HISTORY: CHEST PAIN COMPARISON: 05/12/2015 TECHNIQUE: Chest PA and lateral FINDINGS: LUNGS: No active pulmonary disease. PLEURA: No significant pleural effusion identified. No pneumothorax apparent. CARDIOVASCULAR: Normal. OSSEOUS STRUCTURES: No significant abnormalities. VISUALIZED UPPER ABDOMEN: Normal. OTHER FINDINGS: None. IMPRESSION: No active disease.
[2017-12-01 17:03] LABS: CK-MB 1.13 ng/mL (0.0-3.38)
[2017-12-01] MEDS ORDERED: DiphenhydrAMINE 50 mg/ml Inj IVP STA (22:57)
[2017-12-01] MEDS ORDERED: Enoxaparin 40 mg Syringe SC STA (23:46)
[2017-12-02] MEDS ORDERED: DiphenhydrAMINE 50 mg/ml Inj ONE (00:07)
[2017-12-02] MEDS ORDERED: Enoxaparin 60 mg Syringe ONE (00:09)
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
[2017-12-02 01:09] LABS: CK-MB 0.66 ng/mL (0.0-3.38)
[2017-12-02] MEDS ORDERED: Albuterol HFA 90 mcg/actuation (8 g) INH PRN (01:31)
[2017-12-02] MEDS ORDERED: Iodixanol 320 MG/ML 100 ML BOTTLE IV ONE (01:44)
--- NOTE | 2017-12-02 04:39 | CT ---
EXAM: CT Angiography Chest With Intravenous Contrast CLINICAL HISTORY: 36 years old, female; Pain; Chest pain; Additional info: Suspect pe; . Pt. Iv explore during shouting and pt. Just took 40cc contrast. TECHNIQUE: Axial computed tomographic angiography images of the chest with intravenous contrast using pulmonary embolism protocol. All CT scans at this facility use one or more dose reduction techniques, viz.: automated exposure control; ma/kV adjustment per patient size (including targeted exams where dose is matched to indication; i.e. head); or iterative reconstruction technique. MIP reconstructed images were created and reviewed. Coronal and sagittal reformatted images were created and reviewed. CONTRAST: 40 mL of visipaque administered intravenously. COMPARISON: CR - CHEST TWO VIEWS (PA/LAT) 2017-12-01 16:33 FINDINGS: Limitations: Motion artifact - mild. Suboptimal timing of bolus. Suboptimal contrast opacification. Pulmonary arteries: No definite filling defects within main, lobar, segmental branches. Suboptimal evaluation of subsegmental branches. Aorta: No aneurysm. No dissection. Lungs: Minimal dependent atelectasis. No consolidation. Few pulmonary nodules, up to 0.3 cm. Pleural space: Trace bilateral pleural effusions. No pneumothorax. Heart: No cardiomegaly. No significant pericardial effusion. Bones/joints: No acute fracture. Soft tissues: Unremarkable. Lymph nodes: No pathologically enlarged lymph nodes. IMPRESSION: 1. No definite pulmonary embolism. 2. Pulmonary nodules. For low-risk patients, no follow-up is necessary. For high-risk patients (smoking history or other known risk factors) an optional CT at 12 months could be performed. 3. Incidental/non-acute findings are described above.
[2017-12-02 06:25] LABS: BASO # 0.1 K/uL (0.0-0.2); BASO % 0.8 % (0.0-2.0); EOS # 0.1 K/uL (0.0-0.7); EOS % 0.9 % (0.0-4.0); HEMOGLOBIN 12.9 g/dL (11.0-16.0); LYMPH # 1.3 K/uL (1.0-4.3); LYMPH % 18.8 % (20.0-40.0); MEAN CELL VOLUME 86.8 fL (81.0-99.0); MEAN CORPUSCULAR HEMOGLOBIN 29.8 pg (27.0-31.0); MEAN CORPUSCULAR HGB CONC 34.4 g/dL (33.0-37.0); MEAN PLATELET VOLUME 9.4 fL (7.2-11.7); MONO # 0.1 K/uL (0.0-0.8); MONO % 1.5 % (0.0-10.0); NEUT # 5.4 K/uL (1.8-7.0); NRBC % 0.1 % (0.0-2.0); RBC 4.32 Mil/uL (3.80-5.20); RED CELL DISTRIBUTION WIDTH 13.8 % (11.5-14.5)
[2017-12-02 08:39] LABS: ALBUMIN 3.8 g/dL (3.5-5.0); BLOOD UREA NITROGEN 13 mg/dL (7-17); CALCIUM 9.3 mg/dl (8.6-10.4); GFR AFRICAN-AMERICAN > 60; GFR NON-AFRICAN AMERICAN > 60
[2017-12-02 08:40] LABS: ALB/GLOB RATIO 1.1 (1.0-2.1); ALT/SGPT 25 U/L (9-52); AST/SGOT 57 U/L (14-36)
[2017-12-02] MEDS ORDERED: Enoxaparin 40 mg Syringe SC SCH (10:00)
[2017-12-02] MEDS ORDERED: Levothyroxine 50 MCG TAB PO SCH (10:00)
--- NOTE | 2017-12-02 13:28 | VASCLAB ---
PROCEDURE: Lower Extremity Venous Duplex Exam. HISTORY: elevated d-dimer; LE pain PRIORS: None. TECHNIQUE: Bilateral common femoral, femoral, popliteal and posterior tibial, peroneal and great saphenous veins were evaluated. Flow was assessed with color Doppler, compressibility, assessment of phasic flow and augmentation response. Report prepared by Waylon Ferguson, FILI, RVT FINDINGS: RIGHT: 1. Common Femoral Vein: 1.1. Compressibility - Fully compressible: Thrombus - None : Flow - Phasic: Augmentation -Normal: Reflux - None. 2. Femoral Vein: 2.1. Compressibility - Fully compressible: Thrombus - None : Flow - Phasic: Augmentation -Normal: Reflux - None. 3. Popliteal Vein: 3.1. Compressibility - Fully compressible: Thrombus - None : Flow - Phasic: Augmentation -Normal: Reflux - None. 4. Posterior Tibial Vein: 4.1. Compressibility - Fully compressible: Thrombus - None: Flow - Phasic: Augmentation -Normal: Reflux - None. 5. Peroneal Vein: 5.1. Compressibility - Fully compressible: Thrombus - None: Flow - Phasic: Augmentation -Normal: Reflux - None. 6. Great Saphenous Vein: 6.1. Compressibility - Fully compressible: Thrombus - None: Flow - Phasic: Augmentation - Normal: Reflux - None. LEFT: 1. Common Femoral Vein: 1.1. Compressibility - Fully compressible: Thrombus - None: Flow - Phasic: Augmentation -Normal: Reflux - None. 2. Femoral Vein: 2.1. Compressibility - Fully compressible: Thrombus - None: Flow - Phasic: Augmentation -Normal: Reflux - None. 3. Popliteal Vein: 3.1. Compressibility - Fully compressible: Thrombus - None : Flow - Phasic: Augmentation -Normal: Reflux - None. 4. Posterior Tibial Vein: 4.1. Compressibility - Fully compressible: Thrombus - None: Flow - Phasic: Augmentation -Normal: Reflux - None. 5. Peroneal Vein: 5.1. Compressibility - Fully compressible: Thrombus - None: Flow - Phasic: Augmentation -Normal: Reflux - None. 6. Great Saphenous Vein: 6.1. Compressibility - Fully compressible: Thrombus - None: Flow - Phasic: Augmentation - Normal: Reflux - None. OTHER FINDINGS: Right: None significant. Left: None significant. IMPRESSION: Right: No evidence of deep or superficial vein thrombosis of the right lower extremity. Normal valve function noted of the right side. Left: No evidence of deep or superficial vein thrombosis of the left lower extremity. Normal valve function noted of the left side.
--- NOTE | 2017-12-02 16:52 | NM ---
COMPARISON: Chest radiographs 12/01/2017. Chest CT with contrast 12/02/2017. TECHNIQUE: 5.4 mCi Xe-133 Gas. 10.0 mCI technetium 99-m MAA administered intravenously. FINDINGS: VENTILATION COMPONENT: Normal. PERFUSION COMPONENT: One or two subsegmental defects are appreciated at the left lower lobe superior segment, in the LPO view only. IMPRESSION: Lowprobability ventilation perfusion scan for pulmonary embolism.
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
--- NOTE | 2017-12-02 18:50 | CARD ---
APPROVED REPORT EKG Measurement Heart [id number] <Conclusion> Sinus bradycardia with marked sinus arrhythmia Otherwise normal ECG
--- NOTE | 2017-12-02 18:55 | CARD ---
APPROVED REPORT EKG Measurement Heart [id number] <Conclusion> Normal sinus rhythm Normal ECG
[2017-12-03 00:40] VITALS: BP 102/63; PULSE 74; RESP 20; TEMP 98.9; O2SAT 98
[2017-12-03] MEDS ORDERED: Pneumococcal 23-Valent Vaccine IM ONE (10:00)
== END 2017-12-02 20:30 | disposition home or self-care (01) | DRG 543 ==
LOC: C.ER 15:07 → C.9E 22:57 → C.6T 12-02 03:13
PROVIDERS: ADMIT Internal Medicine; ATTEND Internal Medicine
DX: R07.89 Other chest pain (principal); I26.99 Other pulmonary embolism without acute cor pulmonale; E11.22 Type 2 diabetes mellitus with diabetic chronic kidney disease; E11.41 Type 2 diabetes mellitus with diabetic mononeuropathy; N18.9 Chronic kidney disease, unspecified; R79.1 Abnormal coagulation profile; F41.0 Panic disorder [episodic paroxysmal anxiety]; F32.9 Major depressive disorder, single episode, unspecified; E03.9 Hypothyroidism, unspecified; J45.909 Unspecified asthma, uncomplicated

== ENCOUNTER 2018-04-01 17:58 | Emergency (ER) | payer MEDICAID ==
[2018-04-01 17:59] VITALS: BMI 23.3
[2018-04-01 18:09] VITALS: RESP 18; TEMP 98.7
[2018-04-01] MEDS ORDERED: Sodium Chloride 0.9% 1,000 ML IV ONE (19:05)
[2018-04-01 19:29] LABS: BASO # 0.1 K/uL (0.0-0.2); BASO % 1.3 % (0.0-2.0); EOS # 0.6 K/uL (0.0-0.7); EOS % 7.3 % (0.0-4.0); HEMOGLOBIN 13.3 g/dL (11.0-16.0); LYMPH # 3.3 K/uL (1.0-4.3); LYMPH % 40.7 % (20.0-40.0); MEAN CELL VOLUME 86.3 fL (81.0-99.0); MEAN CORPUSCULAR HEMOGLOBIN 29.6 pg (27.0-31.0); MEAN CORPUSCULAR HGB CONC 34.3 g/dL (33.0-37.0); MEAN PLATELET VOLUME 8.8 fL (7.2-11.7); MONO # 0.5 K/uL (0.0-0.8); MONO % 6.3 % (0.0-10.0); NEUT # 3.6 K/uL (1.8-7.0); NEUT % 44.4 % (50.0-75.0); NRBC % 0.1 % (0.0-2.0); RBC 4.5 Mil/uL (3.80-5.20); RED CELL DISTRIBUTION WIDTH 13.6 % (11.5-14.5); WHITE BLOOD COUNT 8.1 K/uL (4.8-10.8)
[2018-04-01 19:31] LABS: SQUAMOUS EPITHIAL 4 /hpf (0-5); URINE BILIRUBIN NEGATIVE (NEGATIVE); URINE BLOOD NEGATIVE (NEGATIVE); URINE CLARITY Clear (Clear); URINE COLOR Yellow (YELLOW); URINE GLUCOSE (UA) NORMAL (Normal); URINE LEUKOCYTE ESTERASE NEG Leu/uL (Negative); URINE PROTEIN NEGATIVE (NEGATIVE); URINE UROBILINOGEN NORMAL mg/dL (0.2-1.0)
--- NOTE | 2018-04-01 19:41 | C.PDOC ---
History Of Present Illness 37-year-old female, presents to the emergency department with complaints of sharp right sided body pain for the past few days mostly to right neck area. Patient denies any fall or trauma. Chief Complaint (Nursing): Upper Extremity Problem/Injury History Per: Patient History/Exam Limitations: no limitations Current Symptoms Are (Timing): Still Present Severity: Moderate Past Medical History Reviewed: Historical Data, Nursing Documentation, Vital Signs Vital Signs: Last Vital Signs Temp 98.7 F 04/01/18 20:57 Pulse 78 04/01/18 20:57 Resp 18 04/01/18 20:57 BP 110/74 04/01/18 20:57 Pulse Ox 99 04/01/18 20:57 - Medical History PMH: Anemia, Anxiety, Asthma, Back Problems ("3 HERNIATED DISCS"), Depression, Diabetes, Hyperthyroidism, Hypothyroidism, Chronic Kidney Disease - [facility] Procedures ANESTH INJECT-SPIN CANAL (01/09/15) INJECT STEROID (01/09/15) LUMBOSAC SPINE X-RAY NEC (01/09/15) SPINAL CANAL INJECT NEC (01/09/15) TETANUS TOXOID ADMINIST (05/21/13) Family History: States: No Known Family Hx - Social History Hx Tobacco Use: No Hx Alcohol Use: No Hx Substance Use: No - Immunization History Hx Tetanus Toxoid Vaccination: Yes (05/21/13) Hx Influenza Vaccination: Yes Hx Pneumococcal Vaccination: No Review Of Systems Constitutional: Positive for: Other (right sided body pain). Negative for: Fever, Chills Cardiovascular: Negative for: Chest Pain, Palpitations Respiratory: Negative for: Cough, Shortness of Breath Musculoskeletal: Negative for: Neck Pain, Back Pain Skin: Negative for: Rash Neurological: Negative for: Weakness, Numbness, Headache, Dizziness Physical Exam - Physical Exam Appears: Non-toxic, No Acute Distress Skin: Normal Color, Warm, Dry, No Rash Head: Atraumatic, Normacephalic Eye(s): bilateral: Normal Inspection, PERRL, EOMI Nose: Normal Oral Mucosa: Moist Lips: Normal Appearing Throat: Normal Neck: Normal ROM, Trachea Midline, No Step Off Deformity, Other (mild right sided tenderness) Chest: Symmetrical Cardiovascular: Rhythm Regular, No Murmur Respiratory: Normal Breath Sounds, No Accessory Muscle Use Gastrointestinal/Abdominal: Soft, No Tenderness Back: Normal Inspection Extremity: Normal ROM, No Deformity, No Swelling Neurological/Psych: Oriented x3, Normal Speech ED Course And Treatment - Laboratory Results Result Diagrams: 04/01/18 19:26 04/01/18 19:26 O2 Sat by Pulse Oximetry: 97 (RA) Pulse Ox Interpretation: Normal Disposition - Disposition Referrals: Estrella Bañuelos, [Non-Staff] - Disposition: HOME/ ROUTINE Disposition Time: 20:25 Condition: GOOD Additional Instructions: KATHY WHITAKER, thank you for letting us take care of you today. Your provider was Karl iDaz DO. The emergency medical care you received today was directed at your acute symptoms. If you were prescribed any medication, please fill it and take as directed. It may take several days for your symptoms to resolve. Return to the Emergency Department if your symptoms worsen, do not improve, or if you have any other problems. Please contact your doctor or call one of the physicians/clinics you have been referred to that are listed on the Patient Visit Information form that is included in your discharge packet. Bring any paperwork you were given at discharge with you along with any medications you are taking to your follow up visit. Our treatment cannot replace ongoing medical care by a primary care provider outside of the emergency department. Thank you for allowing the [facility] team to be part of your care today. Follow up with your primary care doctor in 3-4 days for re-evaluation and further management. Prescriptions: Cyclobenzaprine [Cyclobenzaprine HCl] 10 mg PO Q8 PRN #20 tab PRN Reason: Muscle Spasm Ibuprofen [Motrin] 600 mg PO Q6 PRN #20 tab PRN Reason: Pain, Moderate (4-7) Levothyroxine [Synthroid] 100 mcg PO DAILY #10 tab Instructions: Muscle and Bone Pain (DC), Hypothyroidism (Underactive Thyroid) ( DC) Forms: [employer] (American) - Clinical Impression Clinical Impression: Hypothyroidism - Scribe Statement The provider has reviewed the documentation as recorded by the Scribe (Lamont Nguyen) All medical record entries made by the Scribe were at my direction and personally dictated by me. I have reviewed the chart and agree that the record accurately reflects my personal performance of the history, physical exam, medical decision making, and the department course for this patient. I have also personally directed, reviewed, and agree with the discharge instructions and disposition.
[2018-04-01 19:43] LABS: BARBITURATES, UR NEGATIVE (NEGATIVE); BENZODIAZEPINES, UR NEGATIVE (NEGATIVE); OPIATES, UR NEGATIVE (NEGATIVE); PHENCYCLIDINE, UR NEGATIVE (NEGATIVE)
[2018-04-01 19:48] LABS: ALBUMIN 4.3 g/dL (3.5-5.0)
[2018-04-01 20:14] LABS: ALB/GLOB RATIO 1.2 (1.0-2.1); ALT/SGPT 39 U/L (9-52); AST/SGOT 60 U/L (14-36); BLOOD UREA NITROGEN 10 mg/dL (7-17); CALCIUM 9.6 mg/dl (8.6-10.4); GFR AFRICAN-AMERICAN > 60; GFR NON-AFRICAN AMERICAN > 60
[2018-04-01 20:16] LABS: T3 0.959 nmol/L (1.49-2.60)
[2018-04-01 20:58] VITALS: BP 110/74; PULSE 78
[2018-04-02 00:37] VITALS: O2SAT 97
--- NOTE | 2018-04-04 18:24 | CARD ---
APPROVED REPORT EKG Measurement Heart [id number] <Conclusion> Normal sinus rhythm Low voltage QRS Nonspecific T wave abnormality Abnormal ECG
== END 2018-04-01 20:58 | disposition home or self-care (01) ==
LOC: C.ER 17:58
DX: E03.9 Hypothyroidism, unspecified (principal)
CPT/HCPCS: 80053; 80324; 80345; 80346; 80349; 80353; 80358; 80361; 81001; 82948; 83992; 84443; 84480; 85025; 93005; 96361; 96374; 99285; J1885; J7030

== ENCOUNTER 2018-04-27 08:56 | Emergency (ER) | payer MEDICAID ==
[2018-04-27 08:56] VITALS: BMI 23.3
[2018-04-27 09:26] VITALS: RESP 16
[2018-04-27 09:53] LABS: HCG,QUALITATIVE URINE NEGATIVE (NEGATIVE)
--- NOTE | 2018-04-27 09:53 | C.PDOC ---
History Of Present Illness <Mattie Mayo - Last Filed: 04/27/18 16:23> <Kianna Root - Last Filed: 04/29/18 09:50> 37 y/o female with history of Fibroids and Asthma presents to ED with c/o dizziness for 5 days and dysuria since yesterday. Patient states she thinks she has an UTI and denies fever, chills, back pain, hematuria, headache or any other complaints at this time. (Maria Esther,Mattie Salas) History Per: Patient History/Exam Limitations: no limitations Onset/Duration Of Symptoms: Days Current Symptoms Are (Timing): Still Present Severity: Mild <Mattie Mayo - Last Filed: 04/27/18 16:23> <Kianna Root - Last Filed: 04/29/18 09:50> Time Seen by Provider: 04/27/18 09:35 Chief Complaint (Nursing): Dizziness/Lightheaded Past Medical History Reviewed: Historical Data, Nursing Documentation, Vital Signs - Medical History PMH: Anemia, Anxiety, Asthma, Back Problems ("3 HERNIATED DISCS"), Depression, Diabetes, Hyperthyroidism, Hypothyroidism, Chronic Kidney Disease Surgical History: No Surg Hx Family History: States: No Known Family Hx - Social History Hx Tobacco Use: No Hx Alcohol Use: No Hx Substance Use: No - Immunization History Hx Tetanus Toxoid Vaccination: Yes (05/21/13) Hx Influenza Vaccination: Yes Hx Pneumococcal Vaccination: No <Mattie Mayo - Last Filed: 04/27/18 16:23> Vital Signs: Last Vital Signs Temp 97.9 F 04/27/18 11:21 Pulse 63 04/27/18 11:21 Resp 16 04/27/18 09:07 BP 91/60 L 04/27/18 11:21 Pulse Ox 99 04/27/18 16:25 - [facility] Procedures ANESTH INJECT-SPIN CANAL (01/09/15) INJECT STEROID (01/09/15) LUMBOSAC SPINE X-RAY NEC (01/09/15) SPINAL CANAL INJECT NEC (01/09/15) TETANUS TOXOID ADMINIST (05/21/13) Review Of Systems Constitutional: Negative for: Fever, Chills Cardiovascular: Negative for: Chest Pain Gastrointestinal: Negative for: Nausea, Vomiting Genitourinary: Positive for: Dysuria. Negative for: Hematuria, Vaginal Bleeding Skin: Negative for: Rash Neurological: Positive for: Dizziness. Negative for: Weakness, Numbness, Headache <Mattie Mayo - Last Filed: 04/27/18 16:23> Physical Exam - Physical Exam Appears: Non-toxic, No Acute Distress Skin: Warm, Dry, No Rash Head: Atraumatic, Normacephalic Eye(s): bilateral: Normal Inspection Oral Mucosa: Moist Neck: Supple Cardiovascular: Rhythm Regular Respiratory: Normal Breath Sounds, No Rales, No Rhonchi, No Wheezing Gastrointestinal/Abdominal: Soft, Tenderness (suprapubic), No Guarding, No Rebound Back: No CVA Tenderness Neurological/Psych: Oriented x3, Normal Speech, Normal Cognition <Mattie Mayo - Last Filed: 04/27/18 16:23> ED Course And Treatment - Laboratory Results Result Diagrams: 04/27/18 10:12 04/27/18 10:12 Lab Interpretation: Normal Urine POC: Negative ECG: Interpreted By Ia ECG Rhythm: Sinus Rhythm Rate From EC O2 Sat by Pulse Oximetry: 99 (RA) Pulse Ox Interpretation: Normal Progress Note: Blood work, UA ordered. IV fluids administered. treated with rocephin 1 GM IV. On re-evaluation lungs clear, abdomen soft Reassessment Condition: Improved <Mattie Mayo - Last Filed: 04/27/18 16:23> - Laboratory Results Result Diagrams: 04/27/18 10:12 04/27/18 10:12 <Kianna Root - Last Filed: 04/29/18 09:50> Disposition Counseled Patient/Family Regarding: Studies Performed, Diagnosis, Need For Followup, Rx Given - Disposition Disposition Time: 11:00 - POA Present On Arrival: None <Mattie Mayo - Last Filed: 04/27/18 16:23> <Kianna Root - Last Filed: 04/29/18 09:50> - Disposition Referrals: [facility] [Outside] [facility] [Outside] Disposition: HOME/ ROUTINE Condition: STABLE Prescriptions: Cephalexin [Keflex] 500 mg PO Q6 #28 capsule Nitrofurantoin Macrocrystals [Macrobid] 1 cap PO BID #14 cap Instructions: Urinary Tract Infections in Adults Forms: [employer] (Lebanese) - Clinical Impression Clinical Impression: Acute urinary tract infection, Dizziness - PA / TEAM LEADER / Resident Statement MD/DO has reviewed & agrees with the documentation as recorded. - Scribe Statement The provider has reviewed the documentation as recorded by the Scribe <Mattie Mayo - Last Filed: 04/27/18 16:23> <Kianna Root - Last Filed: 04/29/18 09:50> - Scribe Statement Quinn Cooley All medical record entries made by the Scribe were at my direction and personally dictated by me. I have reviewed the chart and agree that the record accurately reflects my personal performance of the history, physical exam, medical decision making, and the department course for this patient. I have also personally directed, reviewed, and agree with the discharge instructions and disposition. (Mattie Mayo) Addendum <Mattie Mayo - Last Filed: 04/27/18 16:23> <Kianna Root - Last Filed: 04/29/18 09:50> Addendum: 04/29/18 09:50 UC[facility] REPORT REVIEWED. PT CALLED AND NOTIFIED NEED TO CHANGE ABX. ADVISED TO IMMEDIATELY STOP KEFLEX. MACROBID RX TRANSMITTED TO [facility]. PT VOICES UNDERSTANDING OF CHANGE IN TREATMENT PLAN. (Kianna Root)
[2018-04-27] MEDS: Sodium Chloride 0.9% 1,000 ML IV ONE (10:12)
[2018-04-27 10:13] LABS: SQUAMOUS EPITHIAL 5 /hpf (0-5); URINE BACTERIA OCC (<OCC); URINE BILIRUBIN NEGATIVE (NEGATIVE); URINE BLOOD 3+ (NEGATIVE); URINE CLARITY Hazy (Clear); URINE COLOR Yellow (YELLOW); URINE GLUCOSE (UA) NORMAL (Normal); URINE LEUKOCYTE ESTERASE 3+ Leu/uL (Negative); URINE PROTEIN 2+ mg/dL (NEGATIVE); URINE UROBILINOGEN NORMAL mg/dL (0.2-1.0)
[2018-04-27 10:21] LABS: BASO # 0.1 K/uL (0.0-0.2); EOS # 0.4 K/uL (0.0-0.7); EOS % 7.4 % (0.0-4.0); HEMOGLOBIN 13.2 g/dL (11.0-16.0); LYMPH # 2.5 K/uL (1.0-4.3); LYMPH % 41.5 % (20.0-40.0); MEAN CELL VOLUME 86.9 fL (81.0-99.0); MEAN CORPUSCULAR HEMOGLOBIN 30.3 pg (27.0-31.0); MEAN CORPUSCULAR HGB CONC 34.9 g/dL (33.0-37.0); MEAN PLATELET VOLUME 8.9 fL (7.2-11.7); MONO # 0.5 K/uL (0.0-0.8); MONO % 8.3 % (0.0-10.0); NEUT # 2.5 K/uL (1.8-7.0); NEUT % 40.8 % (50.0-75.0); RBC 4.34 Mil/uL (3.80-5.20); RED CELL DISTRIBUTION WIDTH 13.4 % (11.5-14.5); WHITE BLOOD COUNT 6.1 K/uL (4.8-10.8)
[2018-04-27] MEDS: cefTRIAXone IV 1 gm in Dextros 50 ML IV STA (10:50)
[2018-04-27] MEDS ORDERED: cefTRIAXone IV 1 gm in Dextros 50 ML IVPB ONE (10:54)
[2018-04-27 11:22] VITALS: BP 91/60; PULSE 63; TEMP 97.9
[2018-04-27 12:59] LABS: BLOOD UREA NITROGEN 10 mg/dL (7-17); CALCIUM 9.4 mg/dl (8.6-10.4); GFR AFRICAN-AMERICAN > 60; GFR NON-AFRICAN AMERICAN > 60
[2018-04-27 16:25] VITALS: O2SAT 99
--- NOTE | 2018-04-28 11:33 | CARD ---
APPROVED REPORT Date of service: 04/27/2018 EKG Measurement Heart [id number] <Conclusion> Normal sinus rhythm Low voltage QRS Nonspecific T wave abnormality Abnormal ECG
== END 2018-04-27 11:39 | disposition home or self-care (01) ==
LOC: C.ER 08:56
DX: N39.0 Urinary tract infection, site not specified (principal); R42 Dizziness and giddiness; E11.22 Type 2 diabetes mellitus with diabetic chronic kidney disease; N18.9 Chronic kidney disease, unspecified; D64.9 Anemia, unspecified
CPT/HCPCS: 80048; 81001; 84703; 85025; 87086; 87181; 93005; 96374; 99285; J0696; J7030

== ENCOUNTER 2018-05-21 10:42 | Emergency (ER) | payer MEDICAID ==
[2018-05-21 10:43] VITALS: BMI 23.3
[2018-05-21 11:03] VITALS: RESP 20
[2018-05-21] MEDS ORDERED: Sodium Chloride 0.9% 1,000 ML IV ONE (11:49)
--- NOTE | 2018-05-21 11:51 | C.PDOC ---
History Of Present Illness 37 year old female present to ED complaining of left sided chest pain that radiates to left arm since this morning. It is associated with dizziness, weak feeling in her legs, epigastric tenderness, and hot flashes. Patient reports a similar episode occurred one year ago and was told she had a thyroid issue with palpitations. She was instructed to follow up with a conventions assistant, but never did. She was also prescribed Synthroid which she never took. Denies fever, chills, shortness of breath, nausea, vomiting, numbness. Time Seen by Provider: 05/21/18 11:07 Chief Complaint (Nursing): Chest Pain History Per: Patient History/Exam Limitations: no limitations Onset/Duration Of Symptoms: Hrs Current Symptoms Are (Timing): Still Present Quality: "Pain" Associated Symptoms: Other (dizziness, legs feel weak, epigastric tenderness, and hot flashes.) Recent travel outside of the [place]: No Past Medical History Reviewed: Historical Data, Nursing Documentation, Vital Signs Vital Signs: Last Vital Signs Temp 98.1 F 05/21/18 15:17 Pulse 73 05/21/18 15:17 Resp 20 05/21/18 15:17 BP 102/71 05/21/18 15:17 Pulse Ox 98 05/21/18 15:17 - Medical History PMH: Anemia, Anxiety, Asthma, Back Problems ("3 HERNIATED DISCS"), Depression, Diabetes, Hyperthyroidism, Hypothyroidism, Chronic Kidney Disease Surgical History: No Surg Hx - [facility] Procedures ANESTH INJECT-SPIN CANAL (01/09/15) INJECT STEROID (01/09/15) LUMBOSAC SPINE X-RAY NEC (01/09/15) SPINAL CANAL INJECT NEC (01/09/15) TETANUS TOXOID ADMINIST (05/21/13) Family History: States: No Known Family Hx - Social History Hx Tobacco Use: No Hx Alcohol Use: No Hx Substance Use: No - Immunization History Hx Tetanus Toxoid Vaccination: Yes (05/21/13) Hx Influenza Vaccination: Yes Hx Pneumococcal Vaccination: No Review Of Systems Except As Marked, All Systems Reviewed And Found Negative. Constitutional: Positive for: Other (hot flashes). Negative for: Fever, Chills Cardiovascular: Positive for: Chest Pain (left sided) Respiratory: Negative for: Shortness of Breath Gastrointestinal: Negative for: Nausea, Vomiting Neurological: Positive for: Weakness (legs feel weak), Dizziness. Negative for : Numbness Physical Exam - Physical Exam Appears: Non-toxic, No Acute Distress Skin: Warm, Dry Head: Atraumatic, Normacephalic Eye(s): bilateral: Normal Inspection, PERRL, EOMI Neck: Supple Chest: Symmetrical, No Deformity, No Tenderness Cardiovascular: Rhythm Regular Respiratory: Normal Breath Sounds, No Wheezing Gastrointestinal/Abdominal: Soft, Tenderness (minimal epigastric tenderness) Neurological/Psych: Oriented x3, Normal Speech, Normal Cognition Gait: Steady ED Course And Treatment - Laboratory Results Result Diagrams: 05/21/18 12:16 05/21/18 12:16 O2 Sat by Pulse Oximetry: 100 (RA) Pulse Ox Interpretation: Normal Medical Decision Making Medical Decision Making: Impression: Chest pain Plan: * EKG * Chest X-ray * IV fluids * Toradol * Labs * Urinalysis Labs done, hypothyroidism noted as per patient history. Patient states that she is supposed to be on 100mcg synthroid daily but does not take it. Explained that her hypothyroidism could be contributing to some of her symptoms. Will write Rx for synthroid as previously prescribed, and advised patient to follow up as outpatient. She states she will see her PMD in two days. Patient to return to the ED for any new or worsening symptoms. On re-eval prior to discharge patient states "I feel better". Disposition - Disposition Disposition: HOME/ ROUTINE Disposition Time: 15:33 Condition: STABLE Additional Instructions: KATHY WHITAKER, thank you for letting us take care of you today. Your provider was Krista Porter MD and you were treated for CHEST PAIN. The emergency medical care you received today was directed at your acute symptoms. If you were prescribed any medication, please fill it and take as directed. It may take several days for your symptoms to resolve. Return to the Emergency Department if your symptoms worsen, do not improve, or if you have any other problems. Please contact your doctor or call one of the physicians/clinics you have been referred to that are listed on the Patient Visit Information form that is included in your discharge packet. Bring any paperwork you were given at discharge with you along with any medications you are taking to your follow up visit. Our treatment cannot replace ongoing medical care by a primary care provider outside of the emergency department. Thank you for allowing the [facility] team to be part of your care today. If you had an X-Ray or CT scan: A Radiologist will review the ED reading if any change in treatment is needed we will contact you. If you had a blood, urine, or wound culture: It will take several days for the results, if any change in treatment is needed we will contact you. If you had an STI test: It will take 48 hours for the results. Please call after 1 week if you have not heard back. Prescriptions: Levothyroxine [Synthroid] 100 mcg PO DAILY #10 tab Instructions: Chest Pain (DC), Hypothyroidism (Underactive Thyroid) (DC) Forms: [employer] (Bengali) - Clinical Impression Clinical Impression: Chest discomfort, Hypothyroidism - Scribe Statement The provider has reviewed the documentation as recorded by the Aneta Mccoy Dung Provider Attestation: KATHY WHITAKER, thank you for letting us take care of you today. Your provider was Krista Porter MD and you were treated for CHEST PAIN. The emergency medical care you received today was directed at your acute symptoms. If you were prescribed any medication, please fill it and take as directed. It may take several days for your symptoms to resolve. Return to the Emergency Department if your symptoms worsen, do not improve, or if you have any other problems. Please contact your doctor or call one of the physicians/clinics you have been referred to that are listed on the Patient Visit Information form that is included in your discharge packet. Bring any paperwork you were given at discharge with you along with any medications you are taking to your follow up visit. Our treatment cannot replace ongoing medical care by a primary care provider outside of the emergency department. Thank you for allowing the [facility] team to be part of your care today. If you had an X-Ray or CT scan: A Radiologist will review the ED reading if any change in treatment is needed we will contact you. If you had a blood, urine, or wound culture: It will take several days for the results, if any change in treatment is needed we will contact you. If you had an STI test: It will take 48 hours for the results. Please call after 1 week if you have not heard back.
[2018-05-21 12:20] LABS: BASO # 0.1 K/uL (0.0-0.2); BASO % 1.4 % (0.0-2.0); EOS # 0.4 K/uL (0.0-0.7); EOS % 4.5 % (0.0-4.0); HEMOGLOBIN 13.4 g/dL (11.0-16.0); LYMPH # 2.6 K/uL (1.0-4.3); MEAN CELL VOLUME 88.2 fL (81.0-99.0); MEAN CORPUSCULAR HEMOGLOBIN 30.8 pg (27.0-31.0); MEAN CORPUSCULAR HGB CONC 34.9 g/dL (33.0-37.0); MEAN PLATELET VOLUME 9.1 fL (7.2-11.7); MONO # 0.6 K/uL (0.0-0.8); NEUT # 5.4 K/uL (1.8-7.0); NEUT % 59.1 % (50.0-75.0); RBC 4.34 Mil/uL (3.80-5.20); WHITE BLOOD COUNT 9.2 K/uL (4.8-10.8)
[2018-05-21 12:25] LABS: URINE BILIRUBIN NEGATIVE (NEGATIVE); URINE BLOOD NEGATIVE (NEGATIVE); URINE CLARITY Clear (Clear); URINE COLOR Amber (YELLOW); URINE GLUCOSE (UA) NORMAL (Normal); URINE LEUKOCYTE ESTERASE NEG Leu/uL (Negative); URINE PROTEIN NEGATIVE (NEGATIVE)
[2018-05-21 12:35] LABS: ALB/GLOB RATIO 1.2 (1.0-2.1); ALBUMIN 4.4 g/dL (3.5-5.0); ALT/SGPT 25 U/L (9-52); AST/SGOT 42 U/L (14-36); BLOOD UREA NITROGEN 11 mg/dL (7-17); CALCIUM 9.6 mg/dl (8.6-10.4); GFR AFRICAN-AMERICAN > 60; GFR NON-AFRICAN AMERICAN 56; LIPASE 215 U/L (23-300)
[2018-05-21 13:55] LABS: T4 1.32 ug/dL (5.5-11.0)
[2018-05-21 14:13] LABS: T3 0.839 nmol/L (1.49-2.60)
--- NOTE | 2018-05-21 14:45 | RAD ---
Chest x-ray two views History: Chest pain. Comparison: 12/01/2017 Findings: Biapical pleural thickening with upper lobe granulomatous changes. Diffuse increased interstitial lung markings. Heart size within normal limits. Degenerative changes in the spine. Impression: Biapical pleural thickening with upper lobe granulomatous changes. Diffuse increased interstitial lung markings.
[2018-05-21 15:17] VITALS: BP 102/71; PULSE 73; TEMP 98.1
[2018-05-21 17:37] VITALS: O2SAT 100
--- NOTE | 2018-05-24 16:53 | CARD ---
APPROVED REPORT Date of service: 05/21/2018 EKG Measurement Heart [id number] <Conclusion> Sinus rhythm with 1st degree AV block Low voltage QRS Nonspecific T wave abnormality Abnormal ECG
== END 2018-05-21 15:33 | disposition home or self-care (01) ==
LOC: C.ER 10:42
DX: R07.89 Other chest pain (principal); E03.9 Hypothyroidism, unspecified
CPT/HCPCS: 71046; 80053; 81001; 83690; 84436; 84443; 84480; 84484; 85025; 93005; 96361; 96374; 99284; J1885; J7030

== ENCOUNTER 2018-09-10 21:55 | Emergency (ER) | payer MEDICAID ==
[2018-09-10 21:56] VITALS: BMI 21.6
[2018-09-10 22:07] VITALS: BP 100/64; PULSE 98; RESP 16; O2SAT 98
[2018-09-10 23:02] LABS: HCG,QUALITATIVE URINE NEGATIVE (NEGATIVE)
[2018-09-10 23:08] LABS: SQUAMOUS EPITHIAL 1 /hpf (0-5); URINE BILIRUBIN NEGATIVE (NEGATIVE); URINE BLOOD NEGATIVE (NEGATIVE); URINE CLARITY Clear (Clear); URINE COLOR Yellow (YELLOW); URINE GLUCOSE (UA) NORMAL (Normal); URINE LEUKOCYTE ESTERASE NEG Leu/uL (Negative); URINE PROTEIN NEGATIVE (NEGATIVE)
--- NOTE | 2018-09-11 00:09 | C.PDOC ---
History Of Present Illness 37 year old female presents to the ED c/o generalized body aches, malaise, fever and cough for the past 4 days. Patient reports fever has been intermittent, patient has been taking Theraflu with minimal relief. Patient reports fever still persistent which prompted the visit to the ED. Patient denies SOB, chest pain, dysuria, heamturia, back pain, rash, nausea, vomit, diarrhea, sick contacts, recent travel. Time Seen by Provider: 09/10/18 22:18 Chief Complaint (Nursing): Flu-like Symptoms History Per: Patient History/Exam Limitations: no limitations Onset/Duration Of Symptoms: Days (4) Current Symptoms Are (Timing): Still Present Location Of Pain: Sinus/es, Diffuse Myalgias Sick Contacts (Context): None Associated Symptoms: Fever, Cough, Sputum, Sinus Drainage, Nasal Congestion Ear Symptoms: Bilateral: None Recent travel outside of the [place]: No Additional History Per: Patient Past Medical History Reviewed: Historical Data, Nursing Documentation, Vital Signs Vital Signs: Last Vital Signs Temp 102.1 F H 09/10/18 23:25 Pulse 98 H 09/10/18 22:04 Resp 16 09/10/18 22:04 BP 100/64 09/10/18 22:04 Pulse Ox 98 09/10/18 22:04 - Medical History PMH: Anemia, Anxiety, Asthma, Back Problems ("4 HERNIATED DISCS"), Depression, Diabetes, Hyperthyroidism, Hypothyroidism, Chronic Kidney Disease Surgical History: No Surg Hx - [facility] Procedures ANESTH INJECT-SPIN CANAL (01/09/15) INJECT STEROID (01/09/15) LUMBOSAC SPINE X-RAY NEC (01/09/15) SPINAL CANAL INJECT NEC (01/09/15) TETANUS TOXOID ADMINIST (05/21/13) Family History: States: Unknown Family Hx - Social History Hx Tobacco Use: No Hx Alcohol Use: No Hx Substance Use: No - Immunization History Hx Tetanus Toxoid Vaccination: Yes (05/21/13) Hx Influenza Vaccination: Yes Hx Pneumococcal Vaccination: No Review Of Systems Constitutional: Positive for: Fever, Malaise. Negative for: Chills ENT: Positive for: Nose Discharge, Nose Congestion. Negative for: Ear Pain, Mouth Swelling, Throat Swelling Cardiovascular: Negative for: Chest Pain Respiratory: Positive for: Cough, Sputum. Negative for: Shortness of Breath, Wheezing Gastrointestinal: Negative for: Nausea, Vomiting, Abdominal Pain, Diarrhea Skin: Negative for: Rash Neurological: Negative for: Weakness, Numbness, Headache, Dizziness Physical Exam - Physical Exam Appears: Non-toxic, No Acute Distress Skin: Normal Color, Warm, Dry Head: Atraumatic, Normacephalic Eye(s): bilateral: Normal Inspection Ear(s): Bilateral: Normal Nose: No Discharge Oral Mucosa: Moist Throat: Normal, No Erythema, No Exudate Neck: Normal ROM, Supple Chest: Symmetrical Cardiovascular: Rhythm Regular Respiratory: Normal Breath Sounds, No Rales, No Rhonchi, No Wheezing Gastrointestinal/Abdominal: Soft, No Tenderness Extremity: Normal ROM, No Tenderness, No Swelling Neurological/Psych: Oriented x3, Normal Speech, Normal Cognition Gait: Steady ED Course And Treatment O2 Sat by Pulse Oximetry: 98 (ON RA) Pulse Ox Interpretation: Normal - Radiology CXR: Interpreted by Me, Viewed By Me CXR Interpretation: Yes: Infiltrates (left) Progress Note: Plan: - CXR. - UA. - Motrin 600 mg PO. - Tylenol 975 mg PO. Patient still with elevated fever after Tylenol, Motrin was given. Patient is resting comfortably, tolerating PO, and is afebrile at this time. CXR and labs d/w pt with possibility of pneumona. Pt remained stable in no respirartory distress. Patient will be discharged home, and instructed to follow up with his/her physician in 1-2 days without fail. Patient was instructed to return for any worsening symptoms, persistent fever, neck pain, rash, abdominal pain, or vomiting. Disposition Counseled Patient/Family Regarding: Diagnosis, Need For Followup, Rx Given - Disposition Referrals: 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 - Scribe Statement The provider has reviewed the documentation as recorded by the Scribe Bharath Dey All medical record entries made by the Scribe were at my direction and personally dictated by me. I have reviewed the chart and agree that the record accurately reflects my personal performance of the history, physical exam, medical decision making, and the department course for this patient. I have also personally directed, reviewed, and agree with the discharge instructions and disposition.
[2018-09-11 00:15] VITALS: TEMP 99.6
--- NOTE | 2018-09-11 08:37 | RAD ---
Date of service: 09/10/2018 HISTORY: Cough and congestion COMPARISON: 05/21/2018 TECHNIQUE: Chest PA and lateral FINDINGS: LINES AND TUBES: None. LUNG AND PLEURA: The lungs are well inflated. There is ill-defined airspace disease in the lingula. No pleural effusion or pneumothorax. HEART AND MEDIASTINUM: The heart is not enlarged. No aortic atherosclerotic calcification present. The hilar and mediastinal contours are within normal limits. SKELETAL STRUCTURES: The bony structures are within normal limits for the patient's age. VISUALIZED UPPER ABDOMEN: Normal. OTHER FINDINGS: None. IMPRESSION: Ill-defined airspace disease in the lingula concerning for pneumonia. Follow-up after medical management is recommended to ensure complete resolution.
== END 2018-09-11 00:33 | disposition home or self-care (01) ==
LOC: C.ER 21:55
DX: J18.9 Pneumonia, unspecified organism (principal)

== ENCOUNTER 2019-02-22 09:57 | Emergency (ER) | payer MEDICAID | END 2019-02-22 12:32 | disposition home or self-care (01) | LOC: C.ER 09:57 ==